=== PATIENT | male | born 1955 | race Caucasian/White ===

== ENCOUNTER 2017-10-29 14:25 | Inpatient (IN) | payer OTHER ==
[~2017-10-29] VITALS: Ht 182.9 cm; Wt 90.7 kg
[2017-10-29] MEDS ORDERED: SYNTHROID50 MCG (14:58)
[2017-10-29] MEDS ORDERED: SIMVASTATIN20 MG (14:58)
[2017-10-29] MEDS ORDERED: FUROSEMIDE10 MG/1 M2 (14:59)
[2017-10-29] MEDS ORDERED: TRAMADOL HCL50 MG (14:59)
[2017-10-29] MEDS ORDERED: NEURONTIN300 MG (14:59)
[2017-10-29] MEDS ORDERED: AMLODIPINE BESY10 MG (15:00)
[2017-10-29] MEDS ORDERED: COZAAR100 MG (15:00)
[2017-10-29] MEDS ORDERED: GLUCOTROL XL5 MG (15:00)
[2017-10-29] MEDS ORDERED: MECLIZINE HCL12.5 MG (15:00)
[2017-10-29] MEDS ORDERED: LANTUS SOL100 UNIT/1 (15:01)
[2017-10-29] MEDS ORDERED: PENTOXIFYLLINE400 MG (15:01)
[2017-10-29] MEDS ORDERED: HUMULIN R500 UNIT/2 (15:01)
== END 2017-11-16 12:27 | disposition home health service (06) | DRG 623 ==
LOC: ER 14:25 → MEDI 19:35
PROVIDERS: Specialist
PROC: BQ3MZZZ Magnetic Resonance Imaging (MRI) of Left Foot (ICD-10-PCS; 2017-10-30)
PROC: 0HTRXZZ Resection of Toe Nail, External Approach (ICD-10-PCS; 2017-11-05)
PROC: 0JBR0ZZ Excision of Left Foot Subcutaneous Tissue and Fascia, Open Approach (ICD-10-PCS; principal; 2017-11-05 11:00)
PROC: 0JBR0ZZ Excision of Left Foot Subcutaneous Tissue and Fascia, Open Approach (ICD-10-PCS; 2017-11-09)
PROC: 02HV33Z Insertion of Infusion Device into Superior Vena Cava, Percutaneous Approach (ICD-10-PCS; 2017-11-14)
PROC: 0JBR0ZZ Excision of Left Foot Subcutaneous Tissue and Fascia, Open Approach (ICD-10-PCS; 2017-11-16)
DX: E11.621 Type 2 diabetes mellitus with foot ulcer (principal); L97.528 Non-pressure chronic ulcer of other part of left foot with other specified severity; M86.172 Other acute osteomyelitis, left ankle and foot; L03.032 Cellulitis of left toe; I10 Essential (primary) hypertension; E03.8 Other specified hypothyroidism; Z79.4 Long term (current) use of insulin; E78.4 Other hyperlipidemia; E11.22 Type 2 diabetes mellitus with diabetic chronic kidney disease; I12.9 Hypertensive chronic kidney disease with stage 1 through stage 4 chronic kidney disease, or unspecified chronic kidney disease; N18.1 Chronic kidney disease, stage 1; E11.65 Type 2 diabetes mellitus with hyperglycemia; E11.69 Type 2 diabetes mellitus with other specified complication; K59.09 Other constipation; B35.1 Tinea unguium

== ENCOUNTER 2018-12-09 07:17 | Outpatient (CLI) | payer OTHER ==
[~2018-12-09 07:17] MED LIST: AMLODIPINE BESY10 MG; COZAAR100 MG; FUROSEMIDE10 MG/1 M2; GLUCOTROL XL5 MG; HUMULIN R500 UNIT/2; LANTUS SOL100 UNIT/1; MECLIZINE HCL12.5 MG; NEURONTIN300 MG; PENTOXIFYLLINE400 MG; SIMVASTATIN20 MG; SYNTHROID50 MCG; TRAMADOL HCL50 MG
== END 2018-12-09 07:22 | disposition home or self-care (01) ==
LOC: SONOGRAMA 07:17
DX: M19.90 Unspecified osteoarthritis, unspecified site (principal); M25.512 Pain in left shoulder; M25.511 Pain in right shoulder

== ENCOUNTER → 2019-04-30 | Outpatient (CLI) | payer OTHER | END | disposition home or self-care (01) | LOC: RAD 13:52 | DX: J44.9 Chronic obstructive pulmonary disease, unspecified (principal) ==

== ENCOUNTER 2019-05-18 10:04 | Outpatient (CLI) | payer OTHER | END 2019-05-18 10:06 | disposition home or self-care (01) | LOC: RAD 10:04 | DX: E10.621 Type 1 diabetes mellitus with foot ulcer (principal); Z89.422 Acquired absence of other left toe(s) ==

== ENCOUNTER 2019-10-20 10:47 | Outpatient (CLI) | payer OTHER ==
[2019-10-20] MEDS ORDERED: AMOX1TAB5 PO (11:22)
[2019-10-20] MEDS ORDERED: CIPRODEX OTIC7.5 ML OT (11:22)
== END 2019-10-20 11:00 | disposition home or self-care (01) ==
LOC: OFIC 805 10:47
PROVIDERS: ATTEND Otolaryngology
DX: H66.92 Otitis media, unspecified, left ear (principal); H60.8X2 Other otitis externa, left ear; H61.22 Impacted cerumen, left ear

== ENCOUNTER 2019-10-27 08:44 | Outpatient (CLI) | payer OTHER ==
[~2019-10-27 08:44] MED LIST changes: +AMOX1TAB5 PO; +CIPRODEX OTIC7.5 ML OT
== END 2019-10-27 17:18 | disposition home or self-care (01) ==
LOC: OFIC 805 08:44
PROVIDERS: ATTEND Otolaryngology
DX: H60.8X2 Other otitis externa, left ear (principal); H61.22 Impacted cerumen, left ear

== ENCOUNTER 2019-10-29 08:48 | Outpatient (CLI) | payer OTHER ==
[2019-10-29] MEDS ORDERED: CLOTRIMAZOLE-BE30 ML OTIC (10:28)
== END 2019-10-29 15:00 | disposition home or self-care (01) ==
LOC: OFIC 805 08:48
PROVIDERS: ATTEND Otolaryngology
DX: H60.8X2 Other otitis externa, left ear (principal); H61.22 Impacted cerumen, left ear

== ENCOUNTER 2019-11-03 09:19 | Outpatient (CLI) | payer OTHER ==
[~2019-11-03 09:19] MED LIST changes: +CLOTRIMAZOLE-BE30 ML OTIC
== END 2019-11-03 16:26 | disposition home or self-care (01) ==
LOC: OFIC 805 09:19
PROVIDERS: ATTEND Otolaryngology
DX: B37.84 Candidal otitis externa (principal); H61.22 Impacted cerumen, left ear

== ENCOUNTER 2019-11-10 09:53 | Outpatient (CLI) | payer OTHER | END 2019-11-10 18:26 | disposition home or self-care (01) | LOC: OFIC 805 09:53 | PROVIDERS: ATTEND Otolaryngology | DX: H60.8X2 Other otitis externa, left ear (principal); H61.22 Impacted cerumen, left ear; H66.92 Otitis media, unspecified, left ear ==

== ENCOUNTER 2019-11-18 11:03 | Outpatient (CLI) | payer OTHER | END 2019-11-18 17:39 | disposition home or self-care (01) | LOC: OFIC 805 11:03 | PROVIDERS: ATTEND Otolaryngology | DX: H60.8X2 Other otitis externa, left ear (principal); H66.92 Otitis media, unspecified, left ear; H61.22 Impacted cerumen, left ear ==

== ENCOUNTER 2019-12-08 09:27 | Outpatient (CLI) | payer OTHER | END 2019-12-08 18:54 | disposition home or self-care (01) | LOC: OFIC 805 09:27 | PROVIDERS: ATTEND Otolaryngology | DX: H72.93 Unspecified perforation of tympanic membrane, bilateral (principal); H90.72 Mixed conductive and sensorineural hearing loss, unilateral, left ear, with unrestricted hearing on the contralateral side; H90.41 Sensorineural hearing loss, unilateral, right ear, with unrestricted hearing on the contralateral side ==

== ENCOUNTER 2020-01-05 10:06 | Outpatient (CLI) | payer OTHER | END 2020-01-05 11:00 | disposition home or self-care (01) | LOC: OFIC 805 10:06 | PROVIDERS: ATTEND Otolaryngology | DX: H72.92 Unspecified perforation of tympanic membrane, left ear (principal); H90.72 Mixed conductive and sensorineural hearing loss, unilateral, left ear, with unrestricted hearing on the contralateral side ==

== ENCOUNTER → 2020-02-16 | Outpatient (CLI) | payer OTHER | END | disposition home or self-care (01) | LOC: RAD 08:06 | PROVIDERS: ATTEND Internal Medicine Cardiovascular Disease | DX: R07.89 Other chest pain (principal) ==

== ENCOUNTER 2020-03-18 09:40 | Outpatient (CLI) | payer OTHER ==
[2020-05-06] MEDS ORDERED: KAPVAY0.1 MG PO (08:33)
== END 2020-03-18 12:00 | disposition home or self-care (01) ==
LOC: OFIC 805 09:40
PROVIDERS: ATTEND Otolaryngology
DX: H60.8X1 Other otitis externa, right ear (principal); H90.72 Mixed conductive and sensorineural hearing loss, unilateral, left ear, with unrestricted hearing on the contralateral side; H72.93 Unspecified perforation of tympanic membrane, bilateral; H61.23 Impacted cerumen, bilateral

== ENCOUNTER → 2020-03-28 | Outpatient (CLI) | payer OTHER | END | disposition home or self-care (01) | LOC: OFIC 805 08:31 | PROVIDERS: ATTEND Otolaryngology | DX: H60.8X1 Other otitis externa, right ear (principal); H90.72 Mixed conductive and sensorineural hearing loss, unilateral, left ear, with unrestricted hearing on the contralateral side; H61.21 Impacted cerumen, right ear; H72.93 Unspecified perforation of tympanic membrane, bilateral ==

== ENCOUNTER 2020-04-12 09:20 | Outpatient (CLI) | payer OTHER | END 2020-04-12 11:00 | disposition home or self-care (01) | LOC: OFIC 805 09:20 | PROVIDERS: ATTEND Otolaryngology | DX: H72.93 Unspecified perforation of tympanic membrane, bilateral (principal); H61.23 Impacted cerumen, bilateral ==

== ENCOUNTER → 2020-04-20 | Outpatient (CLI) | payer OTHER | END | disposition home or self-care (01) | LOC: OFIC 805 08:15 | PROVIDERS: ATTEND Otolaryngology Otology & Neurotology | DX: H66.91 Otitis media, unspecified, right ear (principal); H72.92 Unspecified perforation of tympanic membrane, left ear; H90.41 Sensorineural hearing loss, unilateral, right ear, with unrestricted hearing on the contralateral side; H61.21 Impacted cerumen, right ear; H60.8X3 Other otitis externa, bilateral ==

== ENCOUNTER → 2020-04-22 | Outpatient (CLI) | payer OTHER | END | disposition home or self-care (01) | LOC: OFIC 805 11:30 | PROVIDERS: ATTEND Otolaryngology Otology & Neurotology | DX: H91.8X2 Other specified hearing loss, left ear (principal); H72.92 Unspecified perforation of tympanic membrane, left ear; H66.92 Otitis media, unspecified, left ear ==

== ENCOUNTER 2020-05-13 06:26 | Day surgery (SDC) | payer OTHER ==
[~2020-05-13 06:26] MED LIST changes: +KAPVAY0.1 MG PO
[2020-05-13] MEDS ORDERED: KEFLEX750 MG PO (13:41)
[2020-05-13] MEDS ORDERED: CILOXAN5 ML OTIC (13:41)
== END 2020-05-13 16:30 | disposition home or self-care (01) ==
LOC: CIR.AMB 06:26
PROVIDERS: ATTEND Otolaryngology Otology & Neurotology
DX: H72.12 Attic perforation of tympanic membrane, left ear (principal); H90.A12 Conductive hearing loss, unilateral, left ear with restricted hearing on the contralateral side; H90.72 Mixed conductive and sensorineural hearing loss, unilateral, left ear, with unrestricted hearing on the contralateral side; H66.3X2 Other chronic suppurative otitis media, left ear; Z20.822 Contact with and (suspected) exposure to COVID-19

== ENCOUNTER 2020-05-23 13:11 | Outpatient (CLI) | payer OTHER ==
[~2020-05-23 13:11] MED LIST changes: +CILOXAN5 ML OTIC; +KEFLEX750 MG PO
== END 2020-05-23 14:06 | disposition home or self-care (01) ==
LOC: OFIC 805 13:11
PROVIDERS: ATTEND Otolaryngology Otology & Neurotology
DX: H60.8X2 Other otitis externa, left ear (principal); H72.92 Unspecified perforation of tympanic membrane, left ear; H90.72 Mixed conductive and sensorineural hearing loss, unilateral, left ear, with unrestricted hearing on the contralateral side

== ENCOUNTER 2020-11-01 07:10 | Outpatient (CLI) | payer OTHER | END 2020-11-01 07:20 | disposition home or self-care (01) | LOC: MRI 07:10 | DX: L03.116 Cellulitis of left lower limb (principal); M86.8X8 Other osteomyelitis, other site | CPT/HCPCS: 73721 ==

== ENCOUNTER 2022-04-23 09:00 | Outpatient (CLI) | payer OTHER | END 2022-04-23 09:09 | disposition home or self-care (01) | LOC: SONOGRAMA 09:00 | PROVIDERS: ATTEND Internal Medicine Nephrology | DX: E11.22 Type 2 diabetes mellitus with diabetic chronic kidney disease (principal); I12.9 Hypertensive chronic kidney disease with stage 1 through stage 4 chronic kidney disease, or unspecified chronic kidney disease; N18.4 Chronic kidney disease, stage 4 (severe) ==

== ENCOUNTER 2022-07-15 11:20 | Inpatient (IN) | payer OTHER ==
[~2022-07-15] VITALS: Ht 185.4 cm; Wt 86.2 kg
[2022-07-16] MEDS ORDERED: CALCITRIOL0.25 MCG (14:46)
[2022-07-16] MEDS ORDERED: TAMSULOSIN HCL0.4 MG (14:46)
[2022-07-16] MEDS ORDERED: LOPRESSOR25 MG (14:46)
[2022-07-25] MEDS ORDERED: TAMS0.4C PO (16:51)
[2022-07-25] MEDS ORDERED: AMLODIPINE BESY10 MG PO (16:51)
[2022-07-25] MEDS ORDERED: CARVEDILOL12.5 MG PO (16:52)
[2022-07-25] MEDS ORDERED: LEVOTHYROXINE50 MCG PO (16:53)
[2022-07-25] MEDS ORDERED: LANTUS SOL100 UNIT/1 SUBCUTANEO (16:55)
[2022-07-25] MEDS ORDERED: HUMALOG100 UNIT/2 SUBCUTANEO (16:56)
[2022-07-25] MEDS ORDERED: BUMETANIDE1 MG PO (17:00)
== END 2022-07-25 22:22 | disposition home or self-care (01) | DRG 194 ==
LOC: ER 11:20 → MEDJ 18:18
PROVIDERS: Radiology Vascular & Interventional Radiology; ADMIT Internal Medicine; ATTEND Internal Medicine
PROC: BW24ZZZ Computerized Tomography (CT Scan) of Chest and Abdomen (ICD-10-PCS; 2022-07-15)
PROC: B24BYZZ Ultrasonography of Heart with Aorta using Other Contrast (ICD-10-PCS; 2022-07-15)
PROC: 4A12X4Z Monitoring of Cardiac Electrical Activity, External Approach (ICD-10-PCS; 2022-07-15)
PROC: B513ZZA Fluoroscopy of Right Jugular Veins, Guidance (ICD-10-PCS; 2022-07-17)
PROC: 0JH63XZ Insertion of Tunneled Vascular Access Device into Chest Subcutaneous Tissue and Fascia, Percutaneous Approach (ICD-10-PCS; 2022-07-17)
PROC: 05HM33Z Insertion of Infusion Device into Right Internal Jugular Vein, Percutaneous Approach (ICD-10-PCS; principal; 2022-07-17 20:15)
PROC: 02HV33Z Insertion of Infusion Device into Superior Vena Cava, Percutaneous Approach (ICD-10-PCS; 2022-07-19)
PROC: B54PZZZ Ultrasonography of Bilateral Upper Extremity Veins (ICD-10-PCS; 2022-07-20)
PROC: 30243N1 Transfusion of Nonautologous Red Blood Cells into Central Vein, Percutaneous Approach (ICD-10-PCS; 2022-07-20)
DX: J18.9 Pneumonia, unspecified organism (principal); E87.20 Acidosis, unspecified; J90 Pleural effusion, not elsewhere classified; I12.9 Hypertensive chronic kidney disease with stage 1 through stage 4 chronic kidney disease, or unspecified chronic kidney disease; N18.30 Chronic kidney disease, stage 3 unspecified; E11.22 Type 2 diabetes mellitus with diabetic chronic kidney disease; Z79.4 Long term (current) use of insulin; I50.9 Heart failure, unspecified; D64.9 Anemia, unspecified; F43.22 Adjustment disorder with anxiety; E87.70 Fluid overload, unspecified; D72.829 Elevated white blood cell count, unspecified; L97.529 Non-pressure chronic ulcer of other part of left foot with unspecified severity

== ENCOUNTER 2024-01-20 10:57 | Outpatient (CLI) | payer OTHER ==
[~2024-01-20 10:57] MED LIST changes: +AMLODIPINE BESY10 MG PO; +BUMETANIDE1 MG PO; +CALCITRIOL0.25 MCG; +CARVEDILOL12.5 MG PO; +HUMALOG100 UNIT/2 SUBCUTANEO; +LANTUS SOL100 UNIT/1 SUBCUTANEO; +LEVOTHYROXINE50 MCG PO; +LOPRESSOR25 MG; +TAMS0.4C PO; +TAMSULOSIN HCL0.4 MG
== END 2024-01-20 11:02 | disposition home or self-care (01) ==
LOC: RAD 10:57
PROVIDERS: ATTEND Specialist
DX: L97.519 Non-pressure chronic ulcer of other part of right foot with unspecified severity (principal); E10.9 Type 1 diabetes mellitus without complications

== ENCOUNTER 2024-01-27 16:39 | Inpatient (IN) | payer OTHER ==
[~2024-01-27] VITALS: Ht 182.9 cm; Wt 772.5 kg
--- NOTE | 2024-01-27 18:33 | NUR ---
SE RECIBE PACIENTE ALERTA Y ORIENTADO, REFIERE ULCERA EN EL PIE R NO PRESENTA DOLOR POR NEUROPATIA
[2024-01-27] MEDS ORDERED: CEFEPIME HCL 1,000 MG VIAL IV SCH (20:41)
[2024-01-27] MEDS ORDERED: VANCOMYCIN HCL 1,000 MG VIAL IV ONE (20:45)
[2024-01-27] MEDS ORDERED: ACETAMINOPHEN 500 MG GEL..CAP PO PRN (20:45)
[2024-01-27] MEDS ORDERED: DEXTROSE 50 % IN WATER 0.5 G/ML DISP.SYRIN IV PRN (20:45)
[2024-01-27] MEDS ORDERED: INSULIN LISPRO 1,000 UNIT/10 ML UNITS SUBCUTANEO PRN (20:45)
[2024-01-28 04:19] VITALS: BP 145/61; O2SAT 100
[2024-01-28] MEDS ORDERED: LEVOTHYROXINE SODIUM 50 MCG TABLET PO SCH (06:00)
[2024-01-28 07:15] LABS: HEMATOCRIT 32.4 % (39.0-48.0); MEAN CELL VOLUME 100.1 fL (80.0-100.00); MEAN CORPUSCULAR HEMOGLOBIN 33.9 pg (27.00-32.0); MEAN CORPUSCULAR HGB CONC 33.9 g/dl (32.0-36.0); PLATELET COUNT 341 K/uL (150-450); RED BLOOD COUNT 3.24 M/uL (4.00-6.00); RED CELL DISTRIBUTION WIDTH 16.9 % (11.5-14.5)
[2024-01-28 07:34] LABS: INR 1.05; PARTIAL THROMBOPLASTIN TIME 33.4 SECONDS (22.0-34.0); PROTHROMBIN TIME 11.4 SECONDS (9.0-11.5)
[2024-01-28 07:53] LABS: ALBUMIN 3.7 gm/dL (3.4-5.0); BILIRUBIN TOTAL 0.75 mg/dL (0.3-1.2); CALCIUM 9.4 mg/dL (8.5-10.1); GFR 7.98; GLOBULINA 3.9 G/DL (2.4-3.5); POTASSIUM 4.24 mEq/L (3.5-5.1); TOTAL PROTEIN 7.6 gm/dL (6.4-8.2)
[2024-01-28 08:00] VITALS: BP 160/80; O2SAT 99
[2024-01-28 08:16] LABS: CREATININE SERUM 6.93 mg/dL (0.70-1.30)
[2024-01-28] MEDS ORDERED: MECLIZINE HCL 25 MG TABLET PO SCH (09:00)
[2024-01-28] MEDS ORDERED: LOSARTAN POTASSIUM 100 MG TABLET PO SCH (09:00)
[2024-01-28] MEDS ORDERED: ENOXAPARIN SODIUM 30 MG/0.3 ML SYRINGE SUBCUTANEO SCH (09:00)
[2024-01-28] MEDS ORDERED: levoFLOXacin IN DEXTROSE 5 % 5 MG/ML PIGGYBAG IV NR (11:30)
[2024-01-28] MEDS ORDERED: AMINO ACIDS 1 EACH TABLET PO SCH (17:00)
[2024-01-28] MEDS ORDERED: LACTOBACILLUS ACIDOPHILUS 1 CAP CAP PO SCH (17:00)
[2024-01-28] MEDS ORDERED: SIMVASTATIN 20 MG TABLET PO SCH (17:00)
[2024-01-28] MEDS ORDERED: AMPICILLIN SODIUM/SULBACTAM NA 3,000 MG VIAL IV SCH (21:00)
[2024-01-29 01:53] VITALS: BP 136/82; O2SAT 97
[2024-01-29 08:30] VITALS: BP 140/63; O2SAT 100
[2024-01-29] MEDS ORDERED: levoFLOXacin IN DEXTROSE 5 % 500MG/100ML PIGGYBAG IV SCH (17:00)
[2024-01-29] MEDS ORDERED: CEFAZOLIN SODIUM 1,000 MG VIAL IV SCH (17:00)
[2024-01-29] MEDS ORDERED: HEPARIN SODIUM,PORCINE 5,000 UNITS/ML VIAL IV ONE (22:15)
[2024-01-30] VITALS: BP 91/50; O2SAT 98
[2024-01-30 08:21] VITALS: BP 164/72; O2SAT 100
[2024-01-30] MEDS ORDERED: VANCOMYCIN HCL 1,000 MG VIAL IV ONE (14:00)
[2024-01-30] MEDS ORDERED: VANCOMYCIN HCL 500 MG VIAL IV SCH (14:00)
[2024-01-30 17:16] VITALS: BP 145/83; O2SAT 98
[2024-01-30] MEDS ORDERED: INSULIN NPH HUMAN ISOPHANE 1,000 UNITS/10 ML UNITS SUBCUTANEO SCH (21:00)
[2024-01-31 02:48] VITALS: BP 140/69; O2SAT 95
[2024-01-31] MEDS ORDERED: INSULIN NPH HUMAN ISOPHANE 1,000 UNITS/10 ML UNITS SUBCUTANEO SCH (08:00)
[2024-01-31 10:14] VITALS: BP 150/74; O2SAT 98
[2024-01-31 18:32] VITALS: BP 148/75
[2024-02-01 01:51] VITALS: BP 159/72; O2SAT 98
[2024-02-01 08:32] LABS: HEMATOCRIT 31.6 % (39.0-48.0); HEMOGLOBIN 10.9 g/dL (13-16.00); MEAN CELL VOLUME 96.9 fL (80.0-100.00); MEAN CORPUSCULAR HEMOGLOBIN 33.2 pg (27.00-32.0); MEAN CORPUSCULAR HGB CONC 34.3 g/dl (32.0-36.0); PLATELET COUNT 292 K/uL (150-450); RED BLOOD COUNT 3.27 M/uL (4.00-6.00); RED CELL DISTRIBUTION WIDTH 16.8 % (11.5-14.5)
[2024-02-01 09:02] LABS: ALBUMIN 3.2 gm/dL (3.4-5.0); BILIRUBIN TOTAL 0.48 mg/dL (0.3-1.2); CALCIUM 9.5 mg/dL (8.5-10.1); GLOBULINA 3.8 G/DL (2.4-3.5); MAGNESIUM 2.3 mg/dL (1.8-2.4); PHOSPHOROUS 3.8 mg/dL (2.5-4.9); POTASSIUM 4.5 mEq/L (3.5-5.1)
[2024-02-01 09:35] LABS: GFR 13.17
[2024-02-01 09:36] LABS: C-REACTIVE PROTEIN 2.42 MG/DL (0.00-0.29)
[2024-02-01 09:37] LABS: CREATININE SERUM 4.49 mg/dL (0.70-1.30)
[2024-02-01 10:20] VITALS: BP 130/79; O2SAT 98
[2024-02-01 10:24] VITALS: BP 153/79; O2SAT 99
[2024-02-01 18:29] VITALS: BP 117/62
[2024-02-02 02:29] VITALS: BP 155/84
[2024-02-02 09:59] VITALS: BP 155/75; O2SAT 98
[2024-02-02 20:26] VITALS: BP 146/67
[2024-02-03 01:52] VITALS: BP 158/81
[2024-02-03 06:24] LABS: HEMOGLOBIN 10.2 g/dL (13-16.00); MEAN CELL VOLUME 97.1 fL (80.0-100.00); PLATELET COUNT 316 K/uL (150-450); RED BLOOD COUNT 3.09 M/uL (4.00-6.00); RED CELL DISTRIBUTION WIDTH 16.8 % (11.5-14.5)
[2024-02-03 07:23] LABS: ALBUMIN 3.5 gm/dL (3.4-5.0); BILIRUBIN TOTAL 0.52 mg/dL (0.3-1.2); CALCIUM 9.2 mg/dL (8.5-10.1); GFR 8.21; GLOBULINA 3.8 G/DL (2.4-3.5); PHOSPHOROUS 4.2 mg/dL (2.5-4.9); POTASSIUM 4.85 mEq/L (3.5-5.1); TOTAL PROTEIN 7.3 gm/dL (6.4-8.2)
[2024-02-03 08:10] LABS: CREATININE SERUM 6.76 mg/dL (0.70-1.30)
[2024-02-03 09:10] VITALS: BP 148/80; O2SAT 98
[2024-02-03 19:38] VITALS: BP 143/76; O2SAT 100
== END 2024-02-03 20:09 | disposition home or self-care (01) | DRG 622 ==
LOC: ER 16:41 → SURH 22:33 → MEDJ 01-31 16:38
PROVIDERS: General Practice; Internal Medicine Infectious Disease; Specialist; ADMIT Internal Medicine; ATTEND Internal Medicine
PROC: BQ3DZZZ Magnetic Resonance Imaging (MRI) of Right Lower Leg (ICD-10-PCS; 2024-01-28)
PROC: 0JBQ0ZZ Excision of Right Foot Subcutaneous Tissue and Fascia, Open Approach (ICD-10-PCS; principal; 2024-01-29)
PROC: 0JDR0ZZ Extraction of Left Foot Subcutaneous Tissue and Fascia, Open Approach (ICD-10-PCS; 2024-01-29)
PROC: 5A1D70Z Performance of Urinary Filtration, Intermittent, Less than 6 Hours Per Day (ICD-10-PCS; 2024-01-29)
PROC: 5A1D70Z Performance of Urinary Filtration, Intermittent, Less than 6 Hours Per Day (ICD-10-PCS; 2024-01-31)
PROC: 5A1D70Z Performance of Urinary Filtration, Intermittent, Less than 6 Hours Per Day (ICD-10-PCS; 2024-02-03)
DX: E11.621 Type 2 diabetes mellitus with foot ulcer (principal); L89.894 Pressure ulcer of other site, stage 4; I12.0 Hypertensive chronic kidney disease with stage 5 chronic kidney disease or end stage renal disease; E11.51 Type 2 diabetes mellitus with diabetic peripheral angiopathy without gangrene; L97.529 Non-pressure chronic ulcer of other part of left foot with unspecified severity; Z79.4 Long term (current) use of insulin; E78.5 Hyperlipidemia, unspecified; E03.9 Hypothyroidism, unspecified; E11.65 Type 2 diabetes mellitus with hyperglycemia; Z74.01 Bed confinement status; E11.22 Type 2 diabetes mellitus with diabetic chronic kidney disease; N18.6 End stage renal disease; L08.9 Local infection of the skin and subcutaneous tissue, unspecified; B95.61 Methicillin susceptible Staphylococcus aureus infection as the cause of diseases classified elsewhere; B96.89 Other specified bacterial agents as the cause of diseases classified elsewhere; Z99.2 Dependence on renal dialysis
CPT/HCPCS: 73221

== ENCOUNTER 2024-07-20 10:28 | Outpatient (CLI) | payer OTHER | END 2024-07-20 10:35 | disposition home or self-care (01) | LOC: RAD 10:28 | DX: M51.369 Other intervertebral disc degeneration, lumbar region without mention of lumbar back pain or lower extremity pain (principal); R26.2 Difficulty in walking, not elsewhere classified; M54.50 Low back pain, unspecified; M54.16 Radiculopathy, lumbar region ==